=== PATIENT | male | born 1940 | race Caucasian/White ===

== ENCOUNTER → 2017-04-08 | Outpatient (CLI) | payer MEDICARE ==
--- NOTE | 2017-04-08 12:59 | CT ---
EXAMINATION TYPE: CT chest wo con DATE OF EXAM: 04/08/2017 COMPARISON: NONE HISTORY: Persistant cough CT DLP: 437.[address] of the chest was performed with lung and mediastinal window settings submitted. The la ck of contrast limits evaluation of the vascular, mediastinal and parenchymal structures including th e upper abdomen. LUNGS: The lungs are clear and free of infiltrate. No atelectasis. No pulmonary nodule or mass is de tected. No pleural effusion. No CT evidence of interstitial lung disease. Hyperinflation is compati ble with COPD. MEDIASTINUM/ABIGAIL: Thoracic aorta is of normal caliber with limited evaluation given lack of contrast . The heart is not enlarged. Coronary artery calcifications. Atheromatous change thoracic aorta. No evidence for mediastinal mass. No lymph nodes greater than 1cm. UPPER ABDOMEN: Gallstone is identified. OTHER: No significant other abnormality. IMPRESSION: 1. Hyperinflation compatible with COPD. No significant abnormality to account for the patient's symp toms at this time.
== END | disposition home or self-care (01) ==
LOC: RADCTMAIN 12:31
PROVIDERS: ATTEND Internal Medicine Pulmonary Disease
DX: R91.8 Other nonspecific abnormal finding of lung field (principal)
CPT/HCPCS: 71250

== ENCOUNTER → 2019-11-04 | Outpatient (CLI) | payer MEDICARE ==
--- NOTE | 2019-11-04 14:01 | CT ---
EXAMINATION TYPE: CT chest wo con DATE OF EXAM: 11/04/2019 COMPARISON: CT chest 04/08/2017 HISTORY: Asthma CT DLP: 578 mGycm. Automated Exposure Control for Dose Reduction was Utilized. TECHNIQUE: CT scan of the thorax is performed without IV contrast. FINDINGS: LUNGS: The lungs are grossly clear, there is no concerning parenchymal mass or nodule identified. E mphysematous changes are present within the lungs, mild, there is hyperinflation as on prior exam. Th ere is no pleural effusion or pneumothorax seen. The tracheobronchial tree is patent. MEDIASTINUM: Lack of IV contrast is noted to limit evaluation for mediastinal and especially hilar ad enopathy. There are no definitive greater than 1 cm hilar or mediastinal lymph nodes. No cardiomega ly is seen. There are coronary artery calcifications present. Small amount of pericardial fluid. OTHER: Proximal descending aorta measures approximately 3.8 cm. Ascending aorta 3.7 cm. Dependent margaret cification in the gallbladder consistent with cholelithiasis. Some parapelvic cysts present within th e right kidney. IMPRESSION: Emphysema, cholelithiasis, coronary artery disease, aortic aneurysm.
== END | disposition home or self-care (01) ==
LOC: RADCTMAIN 12:07
PROVIDERS: ATTEND Internal Medicine Pulmonary Disease
DX: J43.9 Emphysema, unspecified (principal); I25.10 Atherosclerotic heart disease of native coronary artery without angina pectoris; I71.9 Aortic aneurysm of unspecified site, without rupture; E78.2 Mixed hyperlipidemia; K58.9 Irritable bowel syndrome, unspecified; J45.991 Cough variant asthma; J45.40 Moderate persistent asthma, uncomplicated
CPT/HCPCS: 71250

== ENCOUNTER → 2022-12-02 | Outpatient (CLI) | payer MEDICARE ==
--- NOTE | 2022-12-02 13:15 | CT ---
EXAMINATION TYPE: CT chest wo con DATE OF EXAM: 12/02/2022 COMPARISON: 11/04/19 HISTORY: J44.[address] DLP: 464.[address] of the chest was performed with lung and mediastinal window settings submitted. The la ck of contrast limits evaluation of the vascular, mediastinal and parenchymal structures including th e upper abdomen. LUNGS: The lungs are clear and free of infiltrate. No atelectasis. No pulmonary nodule or mass is de tected. No pleural effusion. No CT evidence of interstitial lung disease. MEDIASTINUM/ABIGAIL: The descending thoracic aorta is aneurysmal at 3.3 cm AP dimension. Descending thor acic aorta measures 3.8 cm and is considered ectatic. Coronary artery calcifications seen. The heart is not enlarged. No evidence for mediastinal mass. No lymph nodes greater than 1cm. UPPER ABDOMEN: No significant abnormality is seen. OTHER: Gallstone identified. IMPRESSION: 1. Hyperinflation compatible with COPD 2. Descending thoracic aortic aneurysm. 3. Cholelithiasis
== END | disposition home or self-care (01) ==
LOC: RADCTMAIN 12:27
PROVIDERS: ATTEND Internal Medicine Pulmonary Disease
DX: I71.23 Aneurysm of the descending thoracic aorta, without rupture (principal); K80.20 Calculus of gallbladder without cholecystitis without obstruction; J44.9 Chronic obstructive pulmonary disease, unspecified; J45.991 Cough variant asthma; I25.10 Atherosclerotic heart disease of native coronary artery without angina pectoris; N40.0 Benign prostatic hyperplasia without lower urinary tract symptoms; E11.9 Type 2 diabetes mellitus without complications
CPT/HCPCS: 71250

== ENCOUNTER 2023-07-09 11:55 | Observation (INO) | payer MEDICARE ==
[2023-07-09 12:51] LABS: Basophils % (A) 1 %; Eosinophils # (A) 0.2 k/uL (0-0.7); Eosinophils % (A) 2 %; HCT 37.1 % (39.0-53.0); HGB 12.8 gm/dL (13.0-17.5); Lymphocytes # (A) 1.8 k/uL (1.0-4.8); Lymphocytes % (A) 19 %; MCH 31.1 pg (25.0-35.0); MCHC 34.4 g/dL (31.0-37.0); MCV 90.4 fL (80.0-100.0); Mean Platelet Volume 7.5; Monocytes # (A) 0.6 k/uL (0-1.0); Monocytes % (A) 6 %; Neutrophils # (A) 6.4 k/uL (1.3-7.7); Neutrophils % (A) 69 %; Platelet Count 255 k/uL (150-450); RDW 12.7 % (11.5-15.5); WBC 9.2 k/uL (3.8-10.6)
[2023-07-09 12:59] LABS: ALT 26 U/L (4-49); AST 24 U/L (17-59); African American GFR (CKD) >90 (>60 ml/min/1.73 sqM); Alkaline Phosphatase 72 U/L (38-126); Anion Gap 7 mmol/L; Blood Urea Nitrogen 20 mg/dL (9-20); Calcium 9.2 mg/dL (8.4-10.2); Carbon Dioxide 26 mmol/L (22-30); Chloride 102 mmol/L (98-107); Glucose 97 mg/dL (74-99); Non-African American GFR(CKD) 85 (>60 ml/min/1.73 sqM); Potassium 4.3 mmol/L (3.5-5.1); Sodium 135 mmol/L (137-145); Total Bilirubin 0.8 mg/dL (0.2-1.3); Total Protein 6.6 g/dL (6.3-8.2)
--- NOTE | 2023-07-09 14:58 | ED ---
General Adult HPI - General Chief complaint: GI Bleed Stated complaint: blood in stool Time Seen by Provider: 07/09/23 14:15 Source: patient, RN notes reviewed Mode of arrival: ambulatory Limitations: no limitations - History of Present Illness Initial comments: Patient is a pleasant 82-year-old male presenting to the emergency department with concern for lower GI hemorrhage. Patient does have history of similar episode years ago associated with duodenal ulcer. Patient has had 3 bloody bowel movements since yesterday. Patient states stool is maroon colored. No abdominal pain. No back or rectal pain. No fatigue or dyspnea. - Related Data Home Medications Medication Instructions Recorded Confirmed Albuterol Inhaler [Ventolin Hfa 1 puff INHALATION DAILY 10/13/18 10/13/18 Inhaler] Cholecalciferol [Vitamin D3 (25 1,000 units PO DAILY 10/13/18 10/13/18 Mcg = 1000 Iu)] Dicyclomine [Bentyl] 10 mg PO BID 10/13/18 10/13/18 Loratadine [Claritin] 10 mg PO DAILY 10/13/18 10/13/18 Montelukast [Singulair] 10 mg PO DAILY 10/13/18 10/13/18 Multivitamin with Iron 1 tab PO DAILY 10/13/18 10/13/18 [Multivitamins with Iron] Bellaire-3 Fatty Acids [Bellaire-3] 1,000 mg PO 10/13/18 Allergies Allergy/AdvReac Type Severity Reaction Status Date / Time No Known Allergies Allergy Verified 07/09/23 12:09 Review of Systems ROS Statement: Those systems with pertinent positive or pertinent negative responses have been documented in the HPI. ROS Other: All systems not noted in ROS Statement are negative. Constitutional: Denies: fever Eyes: Denies: eye pain ENT: Denies: ear pain Respiratory: Denies: cough Cardiovascular: Denies: chest pain Endocrine: Denies: fatigue Gastrointestinal: Reports: as per HPI, hematochezia Genitourinary: Denies: dysuria Musculoskeletal: Denies: back pain Past Medical History Past Medical History: Asthma, COPD Additional Past Medical History / Comment(s): Impaired fasting glucose, IBS History of Any Multi-Drug Resistant Organisms: None Reported Past Surgical History: Tonsillectomy Additional Past Surgical History / Comment(s): vasectomy Past Anesthesia/Blood Transfusion Reactions: No Reported Reaction Past Psychological History: No Psychological Hx Reported Smoking Status: Former smoker Past Alcohol Use History: Occasional Past Drug Use History: None Reported General Exam Limitations: no limitations General appearance: alert, in no apparent distress Head exam: Present: normocephalic Eye exam: Present: normal appearance Neck exam: Present: normal inspection Respiratory exam: Present: normal lung sounds bilaterally Cardiovascular Exam: Present: regular rate, normal rhythm GI/Abdominal exam: Present: soft. Absent: tenderness Rectal exam: Present: bloody stool Extremities exam: Present: normal inspection Neurological exam: Present: alert Psychiatric exam: Present: normal affect, normal mood Skin exam: Present: normal color Course Vital Signs 07/09/23 07/09/23 12:06 14:49 Temperature 98.1 F 97.7 F Pulse Rate 72 66 Respiratory 18 18 Rate Blood Pressure 155/81 179/85 O2 Sat by Pulse 98 98 Oximetry EKG Findings - EKG Results: EKG: interpreted by JG (Left axis), sinus rhythm, normal QRS, normal ST/T Medical Decision Making - Medical Decision Making Was pt. sent in by a medical professional or institution (, PA, THREADING MACHINE SETTER, urgent care, hospital, or retirement...) When possible be specific @ -No Did you speak to anyone other than the patient for history (EMS, parent, family, police, friend...)? What history was obtained from this source @ -No Did you review nursing and triage notes (agree or disagree)? Why? @ -I reviewed and agree with nursing and triage notes Were old charts reviewed (outside hosp., previous admission, EMS record, old EKG, old radiological studies, urgent care reports/EKG's, retirement records)? Report findings @ -No old charts were reviewed Differential Diagnosis (chest pain, altered mental status, abdominal pain women, abdominal pain men, vaginal bleeding, weakness, fever, dyspnea, syncope, headache, dizziness, GI bleed, back pain, seizure, CVA, palpatations, mental health, musculoskeletal)? @ -Differential GI Bleed: Esophageal varices, aortoenteric fistula, Erin-Saravia, gastritis, peptic ulcer disease, diverticulosis, inflammatory bowel disease, hemorrhoids, fissure, colitis, malignancy, Meckels diverticulum, this is not meant to be an all- inclusive list. EKG interpreted by me (3pts min.). @ -As above X-rays interpreted by me (1pt min.). @ -None done CT interpreted by me (1pt min.). @ -None done U/S interpreted by me (1pt. min.). @ -None done What testing was considered but not performed or refused? (CT, X-rays, U/S, labs)? Why? @ -None What meds were considered but not given or refused? Why? @ -None Did you discuss the management of the patient with other professionals (professionals i.e. DrShon, PA, THREADING MACHINE SETTER, lab, RT, psych nurse, web content & social media manager, raw silk grader, teacher, staff antisubmarine officer, counseling case manager)? Give summary @ -case discussed with dr. sanchez who will admit covering doctor, Was smoking cessation discussed for >3mins.? @ -No Was critical care preformed (if so, how long)? @ -No Were there social determinants of health that impacted care today? How? (Homelessness, low income, unemployed, alcoholism, drug addiction, transp ortation, low edu. Level, literacy, decrease access to med. care, nursing home, rehab)? @ -No Was there de-escalation of care discussed even if they declined (Discuss DNR or withdrawal of care, Hospice)? DNR status @ -No What co-morbidities impacted this encounter? (DM, HTN, Smoking, COPD, CAD, Cancer, CVA, ARF, Chemo, Hep., AIDS, mental health diagnosis, sleep apnea, morbid obesity)? @ -None Was patient admitted / discharged? Hospital course, mention meds given and route, prescriptions, significant lab abnormalities, going to OR and other pertinent info. @ -Patient and family are made aware of plan. Patient will be admitted with GI consult. Admission orders written. Undiagnosed new problem with uncertain prognosis? @ -No Drug Therapy requiring intensive monitoring for toxicity (Heparin, Nitro, Insulin, Cardizem)? @ -No Were any procedures done? @ -No Diagnosis/symptom? @ -Lower GI hemorrhage Acute, or Chronic, or Acute on Chronic? @ -Acute Uncomplicated (without systemic symptoms) or Complicated (systemic symptoms)? @ -default Side effects of treatment? @ -No Exacerbation, Progression, or Severe Exacerbation? @ -No Poses a threat to life or bodily function? How? (Chest pain, USA, GA, pneumonia, PE, COPD, DKA, ARF, appy, cholecystitis, CVA, Diverticulitis, Homicidal, Suicidal, threat to staff... and all critical care pts) @ -No - Lab Data Result diagrams: 07/09/23 12:10 07/09/23 12:10 Lab Results 07/09/23 07/09/23 07/09/23 Range/Units 12:10 12:10 12:10 WBC 9.2 (3.8-10.6) k/uL RBC 4.10 L (4.30-5.90) m/uL Hgb 12.8 L (13.0-17.5) gm/dL Hct 37.1 L (39.0-53.0) % MCV 90.4 (80.0-100.0) fL MCH 31.1 (25.0-35.0) pg MCHC 34.4 (31.0-37.0) g/dL RDW 12.7 (11.5-15.5) % Plt Count 255 (150-450) k/uL MPV 7.5 Neutrophils % 69 % Lymphocytes % 19 % Monocytes % 6 % Eosinophils % 2 % Basophils % 1 % Neutrophils # 6.4 (1.3-7.7) k/uL Lymphocytes # 1.8 (1.0-4.8) k/uL Monocytes # 0.6 (0-1.0) k/uL Eosinophils # 0.2 (0-0.7) k/uL Basophils # 0.0 (0-0.2) k/uL APTT 25.3 (22.0-30.0) sec Sodium 135 L (137-145) mmol/L Potassium 4.3 (3.5-5.1) mmol/L Chloride 102 (98-107) mmol/L Carbon Dioxide 26 (22-30) mmol/L Anion Gap 7 mmol/L BUN 20 (9-20) mg/dL Creatinine 0.79 (0.66-1.25) mg/dL Est GFR (CKD-EPI)AfAm >90 (>60 ml/min/1.73 sqM) Est GFR (CKD-EPI)NonAf 85 (>60 ml/min/1.73 sqM) Glucose 97 (74-99) mg/dL Calcium 9.2 (8.4-10.2) mg/dL Total Bilirubin 0.8 (0.2-1.3) mg/dL AST 24 (17-59) U/L ALT 26 (4-49) U/L Alkaline Phosphatase 72 (38-126) U/L Troponin I (0.000-0.034) ng/mL Total Protein 6.6 (6.3-8.2) g/dL Albumin 4.0 (3.5-5.0) g/dL Stool Occult Blood (Negative) Blood Type Blood Type Confirm Blood Type Recheck Bld Type Recheck Status Antibody Screen Spec Expiration Date 07/09/23 07/09/23 07/09/23 Range/Units 12:10 12:10 12:35 WBC (3.8-10.6) k/uL RBC (4.30-5.90) m/uL Hgb (13.0-17.5) gm/dL Hct (39.0-53.0) % MCV (80.0-100.0) fL MCH (25.0-35.0) pg MCHC (31.0-37.0) g/dL RDW (11.5-15.5) % Plt Count (150-450) k/uL MPV Neutrophils % % Lymphocytes % % Monocytes % % Eosinophils % % Basophils % % Neutrophils # (1.3-7.7) k/uL Lymphocytes # (1.0-4.8) k/uL Monocytes # (0-1.0) k/uL Eosinophils # (0-0.7) k/uL Basophils # (0-0.2) k/uL APTT (22.0-30.0) sec Sodium (137-145) mmol/L Potassium (3.5-5.1) mmol/L Chloride (98-107) mmol/L Carbon Dioxide (22-30) mmol/L Anion Gap mmol/L BUN (9-20) mg/dL Creatinine (0.66-1.25) mg/dL Est GFR (CKD-EPI)AfAm (>60 ml/min/1.73 sqM) Est GFR (CKD-EPI)NonAf (>60 ml/min/1.73 sqM) Glucose (74-99) mg/dL Calcium (8.4-10.2) mg/dL Total Bilirubin (0.2-1.3) mg/dL AST (17-59) U/L ALT (4-49) U/L Alkaline Phosphatase (38-126) U/L Troponin I <0.012 (0.000-0.034) ng/mL Total Protein (6.3-8.2) g/dL Albumin (3.5-5.0) g/dL Stool Occult Blood (Negative) Blood Type O Positive Blood Type Confirm O Positive Blood Type Recheck No Previous Record Bld Type Recheck Status CABO Indicated Antibody Screen NEGATIVE Spec Expiration Date 07/12/2023 - 230907/09/23 Range/Units 14:37 WBC (3.8-10.6) k/uL RBC (4.30-5.90) m/uL Hgb (13.0-17.5) gm/dL Hct (39.0-53.0) % MCV (80.0-100.0) fL MCH (25.0-35.0) pg MCHC (31.0-37.0) g/dL RDW (11.5-15.5) % Plt Count (150-450) k/uL MPV Neutrophils % % Lymphocytes % % Monocytes % % Eosinophils % % Basophils % % Neutrophils # (1.3-7.7) k/uL Lymphocytes # (1.0-4.8) k/uL Monocytes # (0-1.0) k/uL Eosinophils # (0-0.7) k/uL Basophils # (0-0.2) k/uL APTT (22.0-30.0) sec Sodium (137-145) mmol/L Potassium (3.5-5.1) mmol/L Chloride (98-107) mmol/L Carbon Dioxide (22-30) mmol/L Anion Gap mmol/L BUN (9-20) mg/dL Creatinine (0.66-1.25) mg/dL Est GFR (CKD-EPI)AfAm (>60 ml/min/1.73 sqM) Est GFR (CKD-EPI)NonAf (>60 ml/min/1.73 sqM) Glucose (74-99) mg/dL Calcium (8.4-10.2) mg/dL Total Bilirubin (0.2-1.3) mg/dL AST (17-59) U/L ALT (4-49) U/L Alkaline Phosphatase (38-126) U/L Troponin I (0.000-0.034) ng/mL Total Protein (6.3-8.2) g/dL Albumin (3.5-5.0) g/dL Stool Occult Blood Positive (Negative) Blood Type Blood Type Confirm Blood Type Recheck Bld Type Recheck Status Antibody Screen Spec Expiration Date Disposition Clinical Impression: Lower gastrointestinal hemorrhage Disposition: ADMITTED IP TO THIS HOSP Is patient prescribed a controlled substance at d/c from ED?: No Referrals: Odilon Henry MD [Primary Care Provider] - 1-2 days Time of Disposition: 15:17
[2023-07-09] MEDS ORDERED: NALOXONE 0.4 MG/ML 1 ML VIAL IV PRN (15:20)
[2023-07-09] MEDS: SODIUM CHLORIDE 0.9% 1,000 ML IV SCH (16:02)
--- NOTE | 2023-07-09 17:54 | P.HPIM ---
History of Present Illness H&P Date: 07/09/23 Chief Complaint: hematochezia 82 year old with a history of CVA, hyperlipidemia, hypertension presented for evaluation of hematochezia. Patient says that for the last couple days he's had several stools which are bright red blood and was concerned for GI bleed. However, he denies any lightheadedness, dizziness, chest pain, palpitations, presyncope, fevers, chills, nausea, vomiting, abdominal pain, constipation, numbness/weakness of extremity is. In the emergency room, patient was afebrile, 155/81, heart rate 72, 98% on room air. CBC shows anemia down to 12.8, otherwise unremarkable. Basic metabolic panel shows sodium of 135, otherwise unremarkable. Liver function tests are unremarkable. Troponins less than 0.012. PTT was 25. Occult blood was positive. EKG demonstrated normal sinus rhythm with left axis deviation, no evidence of ischemia. All Systems reviewed and pertinent positives and negatives noted in HPI, all other symptoms are negative Gen: in no apparent distress, resting comfortably in bed Eyes: PERRL, no scleral injection or icterus HENT: normocephalic, atraumatic, good hearing acuity, moist mucous membranes Neck: no tracheal deviation, full range of motion Resp: good air exchange, breathing comfortably with no accessory muscle use, no tactile fremitus, clear to auscultation bilaterally CVS: good distal perfusion x 4, no pitting edema, regular rate and rhythm without murmurs GI: soft, NTTP, ND, no hepatosplenomegaly : no suprapubic tenderness, no CVAT, barber catheter not present MSK: no clubbing, no cyanosis, no noted contractures of extremities Skin: no noted rashes, petechiae; temperature of skin is appropriate Neuro: moving all extremities without signs of weakness, CN II-XII intact Psych: cooperative, euthymic mood, insight and judgment intact Labs and imaging as above Assessment/plan: Hematochezia Normocytic anemia -CBC every 6 hours -IV fluids -Nothing by mouth -GI consult for hematochezia History of CVA Hypertension Hyperlipidemia -Home medications reviewed and reconciled -We are holding patient's aspirin and Plavix which have been initiated for history of recent stroke in September 2022 Past Medical History Past Medical History: Asthma, COPD Additional Past Medical History / Comment(s): Impaired fasting glucose, IBS History of Any Multi-Drug Resistant Organisms: None Reported Past Surgical History: Tonsillectomy Additional Past Surgical History / Comment(s): vasectomy Past Anesthesia/Blood Transfusion Reactions: No Reported Reaction Past Psychological History: No Psychological Hx Reported Smoking Status: Former smoker Past Alcohol Use History: Occasional Past Drug Use History: None Reported Medications and Allergies Home Medications Medication Instructions Recorded Confirmed Type Dicyclomine [Bentyl] 10 mg PO BID 10/13/18 07/09/23 History Loratadine [Claritin] 10 mg PO DAILY 10/13/18 07/09/23 History Montelukast [Singulair] 10 mg PO HS 10/13/18 07/09/23 History Multivitamin with Iron 1 tab PO DAILY 10/13/18 07/09/23 History [Multivitamins with Iron] Ascorbic Acid [Vitamin C] 500 mg PO DAILY 07/09/23 07/09/23 History Aspirin EC [Ecotrin Low Dose] 81 mg PO DAILY 07/09/23 07/09/23 History Atorvastatin [Lipitor] 80 mg PO HS 07/09/23 07/09/23 History Clopidogrel [Plavix] 75 mg PO DAILY 07/09/23 07/09/23 History Losartan [Cozaar] 25 mg PO DAILY 07/09/23 07/09/23 History Allergies Allergy/AdvReac Type Severity Reaction Status Date / Time No Known Allergies Allergy Verified 07/09/23 15:56 Physical Exam Osteopathic Statement: *. No significant issues noted on an osteopathic structural exam other than those noted in the History and Physical/Consult. Vitals: Vital Signs Temp Pulse Pulse Resp BP BP Pulse Ox 07/09/23 17:38 98.0 F 60 16 168/83 98 07/09/23 16:05 97.7 F 62 18 148/83 98 07/09/23 14:49 97.7 F 66 18 179/85 98 07/09/23 12:06 98.1 F 72 18 155/81 98 Intake and Output 07/09/23 07/09/23 07/09/23 06:59 14:59 22:59 Intake Total 690 Balance 690 Intake: Oral 690 Other: Weight 96.162 kg Results CBC & Chem 7: 07/09/23 12:10 07/09/23 12:10 Labs: Abnormal Lab Results - Last 24 Hours (Table) 07/09/23 07/09/23 Range/Units 12:10 12:10 RBC 4.10 L (4.30-5.90) m/uL Hgb 12.8 L (13.0-17.5) gm/dL Hct 37.1 L (39.0-53.0) % Sodium 135 L (137-145) mmol/L
[2023-07-09 18:34] LABS: Basophils # (A) 0.1 k/uL (0-0.2); Basophils % (A) 1 %; Eosinophils # (A) 0.2 k/uL (0-0.7); Eosinophils % (A) 2 %; HCT 36.1 % (39.0-53.0); HGB 12.3 gm/dL (13.0-17.5); Lymphocytes # (A) 2.3 k/uL (1.0-4.8); Lymphocytes % (A) 22 %; MCH 31.1 pg (25.0-35.0); MCV 91.6 fL (80.0-100.0); Mean Platelet Volume 7.2; Monocytes # (A) 0.6 k/uL (0-1.0); Monocytes % (A) 6 %; Neutrophils # (A) 6.7 k/uL (1.3-7.7); Neutrophils % (A) 66 %; Platelet Count 250 k/uL (150-450); RBC 3.94 m/uL (4.30-5.90); RDW 12.7 % (11.5-15.5); WBC 10.1 k/uL (3.8-10.6)
[2023-07-09] MEDS: MONTELUKAST 10 MG TAB PO SCH (20:37)
[2023-07-09] MEDS: ATORVASTATIN 80 MG TAB PO SCH (20:37)
[2023-07-09] MEDS: DICYCLOMINE 10 MG CAP PO SCH (20:37)
[2023-07-10 00:40] LABS: Basophils % (A) 1 %; Eosinophils # (A) 0.2 k/uL (0-0.7); Eosinophils % (A) 3 %; HCT 33.1 % (39.0-53.0); HGB 11.6 gm/dL (13.0-17.5); Lymphocytes # (A) 2.2 k/uL (1.0-4.8); Lymphocytes % (A) 27 %; MCH 32.1 pg (25.0-35.0); MCV 91.7 fL (80.0-100.0); Mean Platelet Volume 6.7; Monocytes # (A) 0.6 k/uL (0-1.0); Monocytes % (A) 8 %; Neutrophils # (A) 4.6 k/uL (1.3-7.7); Neutrophils % (A) 59 %; Platelet Count 231 k/uL (150-450); RBC 3.61 m/uL (4.30-5.90); RDW 12.5 % (11.5-15.5); WBC 7.9 k/uL (3.8-10.6)
[2023-07-10] MEDS: SODIUM CHLORIDE 0.9% 1,000 ML IV SCH ×2 (05:11→08:03)
[2023-07-10] MEDS: MULTIVITAMINS, THERA 1 EACH TAB PO SCH (08:02)
[2023-07-10] MEDS: LORATADINE 10 MG TAB PO SCH (08:02)
[2023-07-10] MEDS: ASCORBIC ACID 500 MG TAB PO SCH (08:02)
[2023-07-10] MEDS: PANTOPRAZOLE 40 MG/10 ML VIAL IV SCH (08:02)
[2023-07-10] MEDS: DICYCLOMINE 10 MG CAP PO SCH ×2 (08:02→20:26)
[2023-07-10] MEDS: LOSARTAN 25 MG TAB PO SCH (08:02)
[2023-07-10] MEDS ORDERED: PROPOFOL 10 MG/ML 20 ML VIAL IV ONE (09:14)
[2023-07-10] MEDS ORDERED: IV FLUID CONTINUATION 1,000 ML IV ONE ×2 (09:16)
--- NOTE | 2023-07-10 09:27 | P.PCN ---
Date of Procedure: 07/10/23 Procedure(s) Performed: BRIEF HISTORY: Patient is a 82-year-old, pleasant, white male admitted hospital with multiple episodes of maroon-colored stools for the last 2 days' duration. Hemoglobin was 12 g/dL Dr 11 g/dL. Has prior history of peptic ulcer disease 35 years ago. He scheduled for an upper endoscopy to rule out upper GI source of bleeding. PROCEDURE PERFORMED: Esophagogastroduodenoscopy. PREOPERATIVE DIAGNOSIS: Acute GI bleed. IV sedation per anesthesia. PROCEDURE: After informed consent was obtained, the patient was brought into the endoscopy unit. IV sedation was administered by Anesthesia under continuous monitoring. Initially the Olympus GIF-140 video endoscope was inserted into the mouth. Esophagus intubated without any difficulty. It was gradually advanced into the stomach and duodenum and carefully examined. The bulb and the second part of the duodenum appeared normal. The scope at this time was withdrawn to the stomach, adequately insufflated with air, and upon careful examination, mucosa of the antrum had mild gastritis. Mucosa of the, body, cardia and the fundus appeared normal. The scope was then withdrawn into the esophagus. The GE junction was located at 39 cm from the incisors. The esophagus appeared normal. There were no erosions or ulcerations seen and the patient tolerated the procedure well. IMPRESSION: 1. No evidence of acute upper GI bleed. 2. Mild gastritis. RECOMMENDATIONS: The findings of this examination were discussed with the patie nt.. He will be scheduled for colonoscopy tomorrow morning. In the meantime he will be started on clear liquid diet.
--- NOTE | 2023-07-10 09:32 | P.CONS ---
History of Present Illness - Reason for Consult Consult date: 07/10/23 GI bleed Requesting physician: Martell Carson - Chief Complaint Melena - History of Present Illness This a pleasant 82-year-old male with a past medical history including CVA/TIA, hypertension and hyperlipidemia on Plavix and aspirin who presented to the emergency department for maroon-colored stools. Patient states he also believes he had a history of acute water no ulcer 35 years ago and believes his last colonoscopy was 5-[address] Elizabeth, he denies any previous EGD. He reports having 3-4 room-colored bowel movements over the past 2 days. No further bleeding since he came into the hospital or this morning. He denies any associated abdominal pain, no nausea or vomiting. Admitting hemoglobin 12.8 with a dropped to 11.6. BUN normal at 20. Denies any fevers, chills, shortness of breath or chest pain. No reported regular NSAID use. Review of Systems REVIEW OF SYSTEMS: CARDIOPULMONARY: No chest pain or shortness of breath. Gastrointestinal: No abdominal pain, no acid reflux. No nausea or vomiting. No hematemesis, coffee-ground emesis. 3-4 colored stools over the past 2 days. GENITOURINARY: No dysuria or hematuria. MUSCULOSKELETAL: Reports normal range of motion. SKIN: No rashes. No jaundice. ENDOCRINE: No chills, fevers. No excessive weight gain or loss. No polydipsia or polyuria. PSYCHIATRIC: Unremarkable. NEUROLOGY: No change in mental status. Denies dizziness, headache. ENT: Vision unremarkable. CONSTITUTIONAL: No recent weight loss. No fever, chills, night sweats. Past Medical History Past Medical History: Asthma, COPD Additional Past Medical History / Comment(s): Impaired fasting glucose, IBS History of Any Multi-Drug Resistant Organisms: None Reported Past Surgical History: Tonsillectomy Additional Past Surgical History / Comment(s): vasectomy Past Anesthesia/Blood Transfusion Reactions: No Reported Reaction Past Psychological History: No Psychological Hx Reported Smoking Status: Former smoker Past Alcohol Use History: Occasional Past Drug Use History: None Reported Medications and Allergies Home Medications Medication Instructions Recorded Confirmed Type Dicyclomine [Bentyl] 10 mg PO BID 10/13/18 07/09/23 History Loratadine [Claritin] 10 mg PO DAILY 10/13/18 07/09/23 History Montelukast [Singulair] 10 mg PO HS 10/13/18 07/09/23 History Multivitamin with Iron 1 tab PO DAILY 10/13/18 07/09/23 History [Multivitamins with Iron] Ascorbic Acid [Vitamin C] 500 mg PO DAILY 07/09/23 07/09/23 History Aspirin EC [Ecotrin Low Dose] 81 mg PO DAILY 07/09/23 07/09/23 History Atorvastatin [Lipitor] 80 mg PO HS 07/09/23 07/09/23 History Clopidogrel [Plavix] 75 mg PO DAILY 07/09/23 07/09/23 History Losartan [Cozaar] 25 mg PO DAILY 07/09/23 07/09/23 History Allergies Allergy/AdvReac Type Severity Reaction Status Date / Time No Known Allergies Allergy Verified 07/09/23 15:56 Physical Exam Vitals: Vital Signs Temp Pulse Pulse Pulse Resp BP BP 07/10/23 04:00 67 16 154/74 07/10/23 00:00 60 16 131/70 07/09/23 20:00 97.8 F 60 16 162/76 07/09/23 17:38 98.0 F 60 16 168/83 07/09/23 16:05 97.7 F 62 18 148/83 07/09/23 14:49 97.7 F 66 18 179/85 07/09/23 12:06 98.1 F 72 18 155/81 Pulse Ox 07/10/23 04:00 98 07/10/23 00:00 98 07/09/23 20:00 97 07/09/23 17:38 98 07/09/23 16:05 98 07/09/23 14:49 98 07/09/23 12:06 98 Intake and Output 07/09/23 07/09/23 07/10/23 14:59 22:59 06:59 Intake Total 690 Balance 690 Intake: Oral 690 Other: Voiding Method Toilet Toilet # Voids 2 Weight 96.162 kg 96.162 kg General appearance: The patient is alert, oriented, appears in no acute distress. HET: Head is normocephalic and atraumatic. Conjunctiva pink. Sclera anicteric. Neck: Supple without lymphadenopathy. Trachea midline. Heart: Regular. Lungs: Equal expansion, normal respiratory effort. Abdomen: Soft, nontender, nondistended with bowel sounds. No guarding or rigidity. Skin: No rashes. No jaundice. Extremities: Normal skin color and turgor. No pedal edema. Neurological: No focal deficits. Alert and oriented x3. Results CBC & Chem 7: 07/09/23 23:42 07/09/23 12:10 Labs: Abnormal Lab Results - Last 24 Hours (Table) 07/09/23 07/09/23 07/09/23 Range/Units 12:10 12:10 18:07 RBC 4.10 L 3.94 L (4.30-5.90) m/uL Hgb 12.8 L 12.3 L (13.0-17.5) gm/dL Hct 37.1 L 36.1 L (39.0-53.0) % Sodium 135 L (137-145) mmol/L 07/09/23 Range/Units 23:42 RBC 3.61 L (4.30-5.90) m/uL Hgb 11.6 L (13.0-17.5) gm/dL Hct 33.1 L (39.0-53.0) % Sodium (137-145) mmol/L Assessment and Plan (1) Melena Narrative/Plan: 2-year-old male presenting for 2 days of maroon colored stools. He states that he had 3-4 bowel movements over the past 2 days that were maroon colored and he was concern for GI bleed. He does have a history of CVA/TIA and is on aspirin 81 mg and Plavix 75 mg daily. He had no associated abdominal pain, nausea or vomiting. States he does have a remote history of duodenal ulcer which he state s was diagnosed 35 years ago however reports are no previous EGD. Last colonoscopy was 4-[address] Elizabeth, no report available. No further bleeding since he has come to the hospital. No associated abdominal pain, nausea or vomiting. Possible etiologies include peptic ulcer disease, ga stritis, esophagitis, AVM or other possible etiologies. Will plan to do upper endoscopy today. If no findings consider possible colonoscopy. Otherwise can set up outpatient. Current Visit: Yes Status: Acute Code(s): K92.1 - MELENA SNOMED Code(s): 6903875 Plan: 1. Continue symptomatic and supportive care 2. Hold Plavix and aspirin 3. Protonix 40 mg daily for GI prophylaxis 4. Avoid NSAIDs 5. Plan for EGD today, EGD was normal. Will plan for colonoscopy tomorrow morning 6. May advance to clear liquid diet, nothing by mouth after midnight 7. Bowel prep this evening Thank you for this consultation. Thank you for allowing us to participate in the care of the patient, the GI service will sign off, gastroenterology will not be available at the hospital this weekend and through next week. If further evaluation by gastroenterology is required the patient will need transfer as per the primary team's discretion. Dr. Juan Francisco Carter I agree with the dictator's note, documented as a scribe by Tarsha Aponte.
[2023-07-10 09:45] LABS: Basophils # (A) 0.1 k/uL (0-0.2); Basophils % (A) 1 %; Eosinophils # (A) 0.2 k/uL (0-0.7); Eosinophils % (A) 3 %; HCT 37.8 % (39.0-53.0); HGB 12.9 gm/dL (13.0-17.5); Lymphocytes # (A) 1.9 k/uL (1.0-4.8); Lymphocytes % (A) 23 %; MCH 31.4 pg (25.0-35.0); MCHC 34.1 g/dL (31.0-37.0); MCV 92.1 fL (80.0-100.0); Mean Platelet Volume 7.3; Monocytes # (A) 0.5 k/uL (0-1.0); Monocytes % (A) 6 %; Neutrophils # (A) 5.3 k/uL (1.3-7.7); Neutrophils % (A) 65 %; Platelet Count 252 k/uL (150-450); RDW 12.9 % (11.5-15.5); WBC 8.1 k/uL (3.8-10.6)
[2023-07-10 10:12] LABS: Potassium 4.2 mmol/L (3.5-5.1)
[2023-07-10 10:13] LABS: African American GFR (CKD) >90 (>60 ml/min/1.73 sqM); Anion Gap 9 mmol/L; Blood Urea Nitrogen 15 mg/dL (9-20); Calcium 9.1 mg/dL (8.4-10.2); Carbon Dioxide 25 mmol/L (22-30); Chloride 104 mmol/L (98-107); Glucose 119 mg/dL (74-99); Magnesium 2.1 mg/dL (1.6-2.3); Non-African American GFR(CKD) 86 (>60 ml/min/1.73 sqM); Sodium 138 mmol/L (137-145)
--- NOTE | 2023-07-10 10:25 | P.PN ---
Subjective Progress Note Date: 07/10/23 Pt has no new complaints today. Underwent EGD and I discussed the results with GI and with patient, there is mild gastritis, but no evidence of upper GI Bleed. Gen: in no apparent distress, resting comfortably in bed Eyes: PERRL, no scleral injection or icterus HENT: normocephalic, atraumatic, good hearing acuity, moist mucous membranes Neck: no tracheal deviation, full range of motion Resp: good air exchange, breathing comfortably with no accessory muscle use, no tactile fremitus, clear to auscultation bilaterally CVS: good distal perfusion x 4, no pitting edema, regular rate and rhythm without murmurs GI: soft, NTTP, ND, no hepatosplenomegaly : no suprapubic tenderness, no CVAT, barber catheter not present MSK: no clubbing, no cyanosis, no noted contractures of extremities Skin: no noted rashes, petechiae; temperature of skin is appropriate Neuro: moving all extremities without signs of weakness, CN II-XII intact Psych: cooperative, euthymic mood, insight and judgment intact Hospital Course: 82 year old with a history of CVA, hyperlipidemia, hypertension presented for evaluation of hematochezia. In the emergency room, patient was afebrile, 155/81, heart rate 72, 98% on room air. CBC shows anemia down to 12.8, otherwise unremarkable. Basic metabolic panel shows sodium of 135, otherwise unremarkable. Liver function tests are unremarkable. Troponins less than 0.012. PTT was 25. Occult blood was positive. EKG demonstrated normal sinus rhythm with left axis deviation, no evidence of ischemia. Assessment/plan: Hematochezia Normocytic anemia -CBC every 6 hours -IV fluids -Nothing by mouth advanced to [facility] -GI consult for hematochezia, plan for colonoscopy tomorrow History of CVA Hypertension Hyperlipidemia -Home medications reviewed and reconciled -We are holding patient's aspirin and Plavix which have been initiated for history of recent stroke in September 2022 Objective - Vital Signs Vital signs: Vital Signs Temp 98.2 F 07/10/23 07:57 Pulse 77 07/10/23 09:37 Resp 16 07/10/23 09:37 BP 158/69 07/10/23 09:37 Pulse Ox 95 07/10/23 09:37 FiO2 Intake & Output 07/09/23 07/10/23 07/10/23 18:59 06:59 18:59 Intake Total 690 50 Balance 690 50 Weight 96.162 kg Intake: IV 50 Oral 690 Other: Voiding Method Toilet Toilet # Voids 2 1 # Bowel Movements 1 - Labs CBC & Chem 7: 07/10/23 07:44 07/10/23 07:44 Labs: Abnormal Lab Results - Last 24 Hours (Table) 07/09/23 07/09/23 07/09/23 Range/Units 12:10 12:10 18:07 RBC 4.10 L 3.94 L (4.30-5.90) m/uL Hgb 12.8 L 12.3 L (13.0-17.5) gm/dL Hct 37.1 L 36.1 L (39.0-53.0) % Sodium 135 L (137-145) mmol/L Glucose (74-99) mg/dL 07/09/23 07/10/23 07/10/23 Range/Units 23:42 07:44 07:44 RBC 3.61 L 4.10 L (4.30-5.90) m/uL Hgb 11.6 L 12.9 L (13.0-17.5) gm/dL Hct 33.1 L 37.8 L (39.0-53.0) % Sodium (137-145) mmol/L Glucose 119 H (74-99) mg/dL
[2023-07-10 11:32] LABS: Basophils % (A) 0 %; Eosinophils # (A) 0.1 k/uL (0-0.7); Eosinophils % (A) 2 %; HCT 36.8 % (39.0-53.0); HGB 12.4 gm/dL (13.0-17.5); Lymphocytes # (A) 1.7 k/uL (1.0-4.8); Lymphocytes % (A) 20 %; MCH 30.9 pg (25.0-35.0); MCHC 33.7 g/dL (31.0-37.0); MCV 91.8 fL (80.0-100.0); Monocytes # (A) 0.6 k/uL (0-1.0); Monocytes % (A) 7 %; Neutrophils # (A) 5.9 k/uL (1.3-7.7); Neutrophils % (A) 68 %; Platelet Count 231 k/uL (150-450); RBC 4.01 m/uL (4.30-5.90); RDW 12.8 % (11.5-15.5); WBC 8.6 k/uL (3.8-10.6)
[2023-07-10] MEDS ORDERED: PEG 3350 (236 GM/BTL) + LYTES 4,000 ML BOTTLE PO ONE (14:00)
[2023-07-10 17:54] LABS: Basophils # (A) 0.1 k/uL (0-0.2); Basophils % (A) 1 %; Eosinophils # (A) 0.2 k/uL (0-0.7); Eosinophils % (A) 3 %; HCT 38.5 % (39.0-53.0); Lymphocytes # (A) 1.9 k/uL (1.0-4.8); Lymphocytes % (A) 22 %; MCH 31.3 pg (25.0-35.0); MCHC 33.9 g/dL (31.0-37.0); MCV 92.2 fL (80.0-100.0); Monocytes # (A) 0.6 k/uL (0-1.0); Monocytes % (A) 7 %; Neutrophils # (A) 5.8 k/uL (1.3-7.7); Neutrophils % (A) 65 %; Platelet Count 252 k/uL (150-450); RBC 4.17 m/uL (4.30-5.90); RDW 12.7 % (11.5-15.5); WBC 8.8 k/uL (3.8-10.6)
[2023-07-10] MEDS: MONTELUKAST 10 MG TAB PO SCH (20:26)
[2023-07-10] MEDS: ATORVASTATIN 80 MG TAB PO SCH (20:26)
[2023-07-11 01:12] LABS: Basophils % (A) 0 %; Eosinophils # (A) 0.2 k/uL (0-0.7); Eosinophils % (A) 2 %; HCT 34.7 % (39.0-53.0); Lymphocytes # (A) 2.2 k/uL (1.0-4.8); Lymphocytes % (A) 22 %; MCH 31.7 pg (25.0-35.0); MCHC 34.7 g/dL (31.0-37.0); MCV 91.4 fL (80.0-100.0); Mean Platelet Volume 7.1; Monocytes # (A) 0.7 k/uL (0-1.0); Monocytes % (A) 7 %; Neutrophils # (A) 6.4 k/uL (1.3-7.7); Neutrophils % (A) 66 %; Platelet Count 249 k/uL (150-450); RBC 3.79 m/uL (4.30-5.90); RDW 12.6 % (11.5-15.5); WBC 9.7 k/uL (3.8-10.6)
[2023-07-11] MEDS ORDERED: PROPOFOL 10 MG/ML 20 ML VIAL IV ONE (07:00)
[2023-07-11] MEDS ORDERED: LACTATED RINGERS 1,000 ML IV ONE (07:04)
--- NOTE | 2023-07-11 07:22 | P.PCN ---
Date of Procedure: 07/11/23 Procedure(s) Performed: BRIEF HISTORY: Patient is a 82-year-old pleasant white male scheduled for an elective colonoscopy as a part of evaluation of the GI bleed. Patient to the hospital with few episodes of maroon colored stools. He had an upper endoscopy yesterday that was unremarkable. His and scheduled for colonoscopy to evaluate further. Patient has been on aspirin and Plavix is on hold for 2 days. No further bleeding and hemoglobin stable at 13 g/dL. PROCEDURE PERFORMED: Colonoscopy with biopsy. PREOPERATIVE DIAGNOSIS: Acute GI bleed and negative upper endoscopy. IV sedation per Anesthesia. PROCEDURE: After informed consent was obtained, the patient, was brought into the endoscopy unit. IV sedation was administered by Anesthesia under continuous monitoring. Digital rectal examination was normal. Initially the Olympus CF-160 flexible video colonoscope was then inserted in the rectum, gradually advanced into the cecum without any difficulty. Careful examination was performed as the scope was gradually being withdrawn. Ileocecal valve and the appendiceal orifice were visualized and appeared normal. Prep was excellent. Mucosa of the cecum appeared normal. In the ascending colon there was a 3 mm and 5 lmm polyp removed by cold biopsy. Rest of the, ascending colon, transverse colon, appeared normal. In the descending colon there was a 3 mm polyp that was removed by cold biopsy. Moderate sigmoid diverticula seen. Rest of the descending colon, sigmoid colon, and rectum appeared normal. Retroflexion was performed in the rectum and no lesions were seen. The patient tolerated the procedure well. IMPRESSION: No evidence of active lower GI bleed 3 mm and 5 mm ascending colon polyp status post cold biopsy 3 mm descending colon polyp status post cold biopsy Moderate left-sided diverticulosis RECOMMENDATIONS: Findings of this examination were discussed with the patient . Recent bleeding could be diverticular in nature which has spontaneously resolved. Diet will be advanced to regular diet. Await biopsy results. Resume aspirin and Plavix. Patient admitted discharged home today with outpatient follow-up as needed.
[2023-07-11] MEDS: SODIUM CHLORIDE 0.9% 1,000 ML IV SCH (09:20)
[2023-07-11] MEDS: PANTOPRAZOLE 40 MG/10 ML VIAL IV SCH (09:25)
[2023-07-11] MEDS: LOSARTAN 25 MG TAB PO SCH (09:26)
[2023-07-11] MEDS: MULTIVITAMINS, THERA 1 EACH TAB PO SCH (09:26)
[2023-07-11] MEDS: DICYCLOMINE 10 MG CAP PO SCH (09:26)
[2023-07-11] MEDS: LORATADINE 10 MG TAB PO SCH (09:26)
[2023-07-11] MEDS: ASCORBIC ACID 500 MG TAB PO SCH (09:26)
[2023-07-11 09:48] VITALS: BP 170/75; PULSE 72; RESP 17; TEMP 97.9
[2023-07-11 10:01] LABS: Basophils % (A) 0 %; Eosinophils # (A) 0.1 k/uL (0-0.7); Eosinophils % (A) 2 %; HCT 38.3 % (39.0-53.0); HGB 12.9 gm/dL (13.0-17.5); Lymphocytes # (A) 1.5 k/uL (1.0-4.8); Lymphocytes % (A) 19 %; MCH 31.4 pg (25.0-35.0); MCHC 33.6 g/dL (31.0-37.0); MCV 93.3 fL (80.0-100.0); Mean Platelet Volume 6.9; Monocytes # (A) 0.3 k/uL (0-1.0); Monocytes % (A) 4 %; Neutrophils # (A) 5.9 k/uL (1.3-7.7); Neutrophils % (A) 74 %; Platelet Count 261 k/uL (150-450); RBC 4.11 m/uL (4.30-5.90); RDW 12.4 % (11.5-15.5); WBC 8.1 k/uL (3.8-10.6)
--- NOTE | 2023-07-11 11:44 | P.DS ---
Providers Date of admission: 07/09/23 15:22 Expected date of discharge: 07/11/23 Attending physician: Sarah Townsend DO Consults: 07/09/23 15:20 Consult Physician Routine Consulting Provider: Mary Carter Consult Reason/Comments: gi hemorrhage Do you want consulting provider notified?: Yes Primary care physician: Odilon Turner [facility] Hospital Course: Hematochezia Normocytic anemia History of CVA Hypertension Hyperlipidemia Hospital Course: 82 year old with a history of CVA, hyperlipidemia, hypertension presented for evaluation of hematochezia. In the emergency room, patient was afebrile, 155/81, heart rate 72, 98% on room air. CBC shows anemia down to 12.8, otherwise unremarkable. Basic metabolic panel shows sodium of 135, otherwise unremarkable. Liver function tests are unremarkable. Troponins less than 0.012. PTT was 25. Occult blood was positive. EKG demonstrated normal sinus rhythm with left axis deviation, no evidence of ischemia. Pt was admitted for endoscopic evaluation and underwent EGD on 07/10 which showed mild gastritis, but no evidence of upper GI Bleed. He subsequently underwent colonoscopy on 07/11 which showed diverticulosis and 3 polyps which were excised. Hgb remained stable throughout hospitalization. Pt will be discharged home with GI f/u. ASA/Plavix held during this hospitalization, resumed on discharge. I spent 34 minutes coordinating this discharge on 07/11 Gen: in no apparent distress, resting comfortably in bed Eyes: PERRL, no scleral injection or icterus HENT: normocephalic, atraumatic, good hearing acuity, moist mucous membranes Neck: no tracheal deviation, full range of motion Resp: good air exchange, breathing comfortably with no accessory muscle use, no tactile fremitus, clear to auscultation bilaterally CVS: good distal perfusion x 4, no pitting edema, regular rate and rhythm without murmurs GI: soft, NTTP, ND, no hepatosplenomegaly : no suprapubic tenderness, no CVAT, barber catheter not present MSK: no clubbing, no cyanosis, no noted contractures of extremities Skin: no noted rashes, petechiae; temperature of skin is appropriate Neuro: moving all extremities without signs of weakness, CN II-XII intact Psych: cooperative, euthymic mood, insight and judgment intact Patient Condition at Discharge: Good Plan - Discharge Summary Discharge Rx Participant: No New Discharge Prescriptions: Continue Multivitamin with Iron [Multivitamins with Iron] 1 tab PO DAILY Montelukast [Singulair] 10 mg PO HS Loratadine [Claritin] 10 mg PO DAILY Dicyclomine [Bentyl] 10 mg PO BID Clopidogrel [Plavix] 75 mg PO DAILY Aspirin EC [Ecotrin Low Dose] 81 mg PO DAILY Ascorbic Acid [Vitamin C] 500 mg PO DAILY Losartan [Cozaar] 25 mg PO DAILY Atorvastatin [Lipitor] 80 mg PO HS Discharge Medication List Dicyclomine [Bentyl] 10 mg PO BID 10/13/18 [History] Loratadine [Claritin] 10 mg PO DAILY 10/13/18 [History] Montelukast [Singulair] 10 mg PO HS 10/13/18 [History] Multivitamin with Iron [Multivitamins with Iron] 1 tab PO DAILY 10/13/18 [History] Ascorbic Acid [Vitamin C] 500 mg PO DAILY 07/09/23 [History] Aspirin EC [Ecotrin Low Dose] 81 mg PO DAILY 07/09/23 [History] Atorvastatin [Lipitor] 80 mg PO HS 07/09/23 [History] Clopidogrel [Plavix] 75 mg PO DAILY 07/09/23 [History] Losartan [Cozaar] 25 mg PO DAILY 07/09/23 [History] Follow up Appointment(s)/Referral(s): Odilon Henry MD [Primary Care Provider] - 1-2 days Mary Carter MD [STAFF PHYSICIAN] - 1 Week Discharge Disposition: HOME SELF-CARE
== END 2023-07-11 12:23 | disposition home or self-care (01) ==
LOC: EC 11:55 → 3SCARD 15:22 → 4SSUR 07-10 22:26
PROVIDERS: ADMIT Internal Medicine; ATTEND Internal Medicine
DX: D12.2 Benign neoplasm of ascending colon (principal); D12.4 Benign neoplasm of descending colon; K57.30 Diverticulosis of large intestine without perforation or abscess without bleeding; K29.70 Gastritis, unspecified, without bleeding; D64.9 Anemia, unspecified; J44.9 Chronic obstructive pulmonary disease, unspecified; I10 Essential (primary) hypertension; E78.5 Hyperlipidemia, unspecified; Z86.73 Personal history of transient ischemic attack (TIA), and cerebral infarction without residual deficits; Z87.11 Personal history of peptic ulcer disease; Z87.891 Personal history of nicotine dependence; Z79.02 Long term (current) use of antithrombotics/antiplatelets; Z79.82 Long term (current) use of aspirin; Z79.899 Other long term (current) drug therapy
CPT/HCPCS: 96376; 96374; 99285; 36415; 93005; 86900; 86901; 88305; 80053; 80048; 83735; 84484; 85025 ×3; 85730; 86850; 82272; 45380; 43235; G0378 ×4; J2704 ×2; C9113 ×2

== ENCOUNTER 2023-07-14 11:16 | Emergency (ER) | payer MEDICARE ==
[2023-07-14 11:52] VITALS: TEMP 98.3
--- NOTE | 2023-07-14 12:23 | ED ---
General Adult HPI - General Chief complaint: Urogenital Stated complaint: Blood in urine Time Seen by Provider: 07/14/23 11:59 Source: patient, RN notes reviewed Mode of arrival: ambulatory Limitations: no limitations - History of Present Illness Initial comments: Patient is a pleasant 82-year-old male presenting to the emergency department with concerns of hematuria. Onset of symptoms was yesterday. Patient does have some urinary frequency and urgency. Patient does have some mild dysuria. No fever. No vomiting. No new abdominal pain or back pain. - Related Data Home Medications Medication Instructions Recorded Confirmed Dicyclomine [Bentyl] 10 mg PO BID 10/13/18 07/09/23 Loratadine [Claritin] 10 mg PO DAILY 10/13/18 07/09/23 Montelukast [Singulair] 10 mg PO HS 10/13/18 07/09/23 Multivitamin with Iron 1 tab PO DAILY 10/13/18 07/09/23 [Multivitamins with Iron] Ascorbic Acid [Vitamin C] 500 mg PO DAILY 07/09/23 07/09/23 Aspirin EC [Ecotrin Low Dose] 81 mg PO DAILY 07/09/23 07/09/23 Atorvastatin [Lipitor] 80 mg PO HS 07/09/23 07/09/23 Clopidogrel [Plavix] 75 mg PO DAILY 07/09/23 07/09/23 Losartan [Cozaar] 25 mg PO DAILY 07/09/23 07/09/23 Previous Rx's Medication Instructions Recorded Nitrofurantoin Monohyd/M-Cryst 100 mg PO Q12HR #20 cap 07/14/23 [Macrobid] Allergies Allergy/AdvReac Type Severity Reaction Status Date / Time No Known Allergies Allergy Verified 07/14/23 11:27 Review of Systems ROS Statement: Those systems with pertinent positive or pertinent negative responses have been documented in the HPI. ROS Other: All systems not noted in ROS Statement are negative. Constitutional: Denies: fever Eyes: Denies: eye pain ENT: Denies: ear pain Respiratory: Denies: cough, dyspnea Cardiovascular: Denies: chest pain Gastrointestinal: Denies: abdominal pain Genitourinary: Reports: urgency, dysuria, frequency, hematuria Musculoskeletal: Denies: back pain Past Medical History Past Medical History: Asthma, COPD Additional Past Medical History / Comment(s): Impaired fasting glucose, IBS History of Any Multi-Drug Resistant Organisms: None Reported Past Surgical History: Tonsillectomy Additional Past Surgical History / Comment(s): vasectomy Past Anesthesia/Blood Transfusion Reactions: No Reported Reaction Past Psychological History: No Psychological Hx Reported Smoking Status: Former smoker Past Alcohol Use History: Occasional Past Drug Use History: None Reported General Exam Limitations: no limitations General appearance: alert, in no apparent distress Head exam: Present: normocephalic Eye exam: Present: normal appearance Neck exam: Present: normal inspection Respiratory exam: Present: normal lung sounds bilaterally Cardiovascular Exam: Present: regular rate, normal rhythm GI/Abdominal exam: Present: soft. Absent: tenderness Back exam: Present: normal inspection Neurological exam: Present: alert Psychiatric exam: Present: normal affect, normal mood Skin exam: Present: normal color Course Vital Signs 07/14/23 07/14/23 07/14/23 11:27 11:30 13:30 Temperature 98.3 F Pulse Rate 79 78 70 Respiratory 16 16 20 Rate Blood Pressure 131/75 130/70 123/78 O2 Sat by Pulse 94 L 98 95 Oximetry Medical Decision Making - Medical Decision Making Was pt. sent in by a medical professional or institution (, PA, WOOLING MACHINE OPERATOR, urgent care, hospital, or [facility]...) When possible be specific @ -No Did you speak to anyone other than the patient for history (EMS, parent, family, police, friend...)? What history was obtained from this source @ -Family is present and helps confirm history Did you review nursing and triage notes (agree or disagree)? Why? @ -I reviewed and agree with nursing and triage notes Were old charts reviewed (outside hosp., previous admission, EMS record, old EKG, old radiological studies, urgent care reports/EKG's, [facility] records)? Report findings @ -No old charts were reviewed Differential Diagnosis (chest pain, altered mental status, abdominal pain women, abdominal pain men, vaginal bleeding, weakness, fever, dyspnea, syncope, headache, dizziness, GI bleed, back pain, seizure, CVA, palpatations, mental h ealth, musculoskeletal)? @ -Differential Abdominal Pain Men: Appendicitis, cholecystitis, diverticulosis, ischemic bowel, pancreatitis, hepatitis, UTI, gastroenteritis, AAA, incarcerated hernia, bowel obstruction, constipation, inflammatory bowel, hepatitis, peptic ulcer disease, splenic infarction, perforated viscus, testicular torsion, this is not meant to be an all-inclusive list EKG interpreted by me (3pts min.). @ -As above X-rays interpreted by me (1pt min.). @ -None done CT interpreted by me (1pt min.). @ -Computed tomography scan shows bladder wall thickening. Abdominal aortic aneurysm. Renal cyst. U/S interpreted by me (1pt. min.). @ -None done What testing was considered but not performed or refused? (CT, X-rays, U/S, labs)? Why? @ -None What meds were considered but not given or refused? Why? @ -None Did you discuss the management of the patient with other professionals (professionals i.e. , PA, WOOLING MACHINE OPERATOR, lab, RT, psych nurse, manager social work, fittings tightener, teacher, mobile patrol officer, insurance risk manager)? Give summary @ -No Was smoking cessation discussed for >3mins.? @ -No Was critical care preformed (if so, how long)? @ -No Were there social determinants of health that impacted care today? How? (Homelessness, low income, unemployed, alcoholism, drug addiction, transportation, low edu. Level, literacy, decrease access to med. care, halfway, rehab)? @ -No Was there de-escalation of care discussed even if they declined (Discuss DNR or withdrawal of care, Hospice)? DNR status @ -No What co-morbidities impacted this encounter? (DM, HTN, Smoking, COPD, CAD, Cancer, CVA, ARF, Chemo, Hep., AIDS, mental health diagnosis, sleep apnea, morbid obesity)? @ -None Was patient admitted / discharged? Hospital course, mention meds given and route, prescriptions, significant lab abnormalities, going to OR and other pertinent info. @ -Patient reevaluated several times. Patient and family updated several times. Updated on need for follow-up with her doctor regarding aortic aneurysm. Patient will be discharged with oral antibiotics. Undiagnosed new problem with uncertain prognosis? @ -No Drug Therapy requiring intensive monitoring for toxicity (Heparin, Nitro, Insulin, Cardizem)? @ -No Were any procedures done? @ -No Diagnosis/symptom? @ -Cystitis Acute, or Chronic, or Acute on Chronic? @ -Acute Uncomplicated (without systemic symptoms) or Complicated (systemic symptoms)? @ -default Side effects of treatment? @ -No Exacerbation, Progression, or Severe Exacerbation? @ -No Poses a threat to life or bodily function? How? (Chest pain, [place], [place], pneumonia, PE, COPD, DKA, ARF, appy, cholecystitis, CVA, Diverticulitis, Homicidal, Suicidal, threat to staff... and all critical care pts) @ -No - Lab Data Lab Results 07/14/23 Range/Units 12:00 Urine Color Brown Urine Appearance Turbid (Clear) Urine RBC >182 H (0-5) /hpf Urine WBC >182 H (0-5) /hpf Urine WBC Clumps Many H (None) /hpf Urine Mucus Many H (None) /hpf Disposition Clinical Impression: Cystitis Disposition: HOME SELF-CARE Condition: Stable Instructions (If sedation given, give patient instructions): Urinary Tract Infection in Men (ED) Additional Instructions: Prescription sent to pharmacy. Please do follow-up with your primary care physician in the next day or 2 for recheck. Have primary care physician check urine culture. Please also follow-up with your heart doctor. Have both review computed tomography scan done today as you will need monitoring for this. Return for fever, vomiting, abdominal pain, worsening or changing symptoms or other concerns. Hold Plavix while bleeding continues. Prescriptions: Nitrofurantoin Monohyd/M-Cryst [Macrobid] 100 mg PO Q12HR #20 cap Is patient prescribed a controlled substance at d/c from ED?: No Referrals: Odilon Henry MD [Primary Care Provider] - 1-2 days Time of Disposition: 15:24
[2023-07-14 13:04] LABS: Mucus,Urine Many /hpf; RBC,Urine >182 /hpf (0-5); WBC,Urine >182 /hpf (0-5)
[2023-07-14 14:16] VITALS: BP 123/78; PULSE 70; RESP 20
--- NOTE | 2023-07-14 14:45 | CT ---
EXAMINATION TYPE: CT abdomen pelvis wo con DATE OF EXAM: 07/14/2023 COMPARISON: 11/05/2010 and 11/04/2019 HISTORY: 82-year-old male abdominal pain, Gross hematuria and dysuria. CT DLP: 829.2 mGycm. Automated exposure control for dose reduction was used. TECHNIQUE: Contiguous axial scanning of the abdomen and pelvis without IV contrast. Coronal and sagit rony reconstructions performed. FINDINGS: Heart limits of normal in size. Small anterior basilar pericardial effusion measuring 1 cm thick. Und erlying mild emphysematous change with bronchial wall thickening. There is a subpleural pulmonary nodule anterior right middle lobe measuring 1.3 cm, unchanged back to 2019 compatible with a benign etiology. 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 Noncontrast appearance of the liver, adrenal glands, spleen, pancreas show no gross abnormal. Small i nferior splenule. Bilateral renal cortical cysts, largest measuring up to 7.3 cm from the right lower pole and 5.6 cm f rom the left lower pole. Additional parapelvic cysts in both kidneys. Lack of IV contrast limits assessment of the renal parenchyma. No obvious hydronephrosis on either si de. There is a nonobstructive 4 mm left lower pole renal stone. No dilated small bowel, free fluid, or free air. Some surgical material from prior hernia repair marycruz g the umbilicus region. No mesenteric or retroperitoneal lymphadenopathy. Normal appendix. There is mild to moderate stool burden. Left-sided colonic diverticulosis, greatest in the sigmoid colon. No pericolonic inflammatory change. Bladder is collapsed but shows moderate wall thickening and perivesicular fat stranding. Prostate gla nd mildly enlarged at 4.4 cm wide. No abnormal fluid collection in the pelvis or pelvic lymphadenopat hy. Bones: Moderate degenerative disc disease L3-L4. Hypertrophic facet arthropathy lower lumbar spine. IMPRESSION: 1. Bladder wall thickening with perivesicular fat stranding. Correlate for cystitis. 2. 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 There is a nonob structive 4 mm left renal calculus. No hydronephrosis on either side. 3. 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 4. Left-sided colonic diverticulosis, greatest in the sigmoid colon. No evidence for acute diverticu litis.
[2023-07-14 14:57] LABS: Appearance,Urine Turbid (Clear)
[2023-07-14 14:58] LABS: Color,Urine Brown
== END 2023-07-14 15:58 | disposition home or self-care (01) ==
LOC: EC 11:16
DX: N30.91 Cystitis, unspecified with hematuria (principal); K57.30 Diverticulosis of large intestine without perforation or abscess without bleeding; J44.89 Other specified chronic obstructive pulmonary disease; Z79.02 Long term (current) use of antithrombotics/antiplatelets; Z79.899 Other long term (current) drug therapy; Z87.891 Personal history of nicotine dependence
CPT/HCPCS: 74176; 81001; 99284